=== PATIENT | female | born 1960 | race Caucasian/White ===

== ENCOUNTER 2023-07-06 12:00 | Day surgery (SDC) | payer OTHER, SELFPAY ==
--- NOTE | 2023-07-06 12:10 | FL_ITS ---
The [address] [address] Patient Name: GRADY DIXON MRN: [id number] date: 1960 Sex: F Assigned Patient Location: SD Current Patient Location: Accession/Order Number: [id number] Exam Date: 07/06/2023 13:10 Report Date: 07/06/2023 14:12 At the request of: ZAHIDA LOPEZ Procedure: FL hip inj LT EXAMINATION: FL hip inj LT, FL guided needle placement HISTORY: Arthritis of left hip M16.12 COMPARISON: No relevant comparison available. TECHNIQUE: An arthrogram was performed under fluoroscopic guidance using non-ionic contrast material in the usual sterile manner after obtaining informed consent. Standard level fluoroscopic mode of operation utilized. FINDINGS: JOINT: Left hip NEEDLE: 25 gauge, 3.5 spinal needle. MEDICATION: 2 mL buffered 1% lidocaine for subcutaneous anesthesia. 2 mL Omnipaque-300 iodinated contrast to visualize the joint space. 40 mg Kenalog, 2 mL 0.5% bupivacaine, and 3 mL Omnipaque 300 injected into the joint space. TECHNIQUE: Anterior approach with prior localization of the femoral artery. A single stick was successful in gaining access to the joint space. CLINICAL: Improvement of joint pain post injection (10/10 preinjection; 5/10 post injection). COMPLICATIONS: None. OTHER: Negative. FL/FL hip inj LT IMPRESSION: 1. Technically successful left hip injection. Electronically authenticated by: STEPHEN REILLY Date: 07/06/2023 14:12
--- NOTE | 2023-07-06 12:11 | FL_ITS ---
The [address] [address] Patient Name: GRADY DIXON MRN: [id number] date: 1960 Sex: F Assigned Patient Location: CT Current Patient Location: Accession/Order Number: [id number] Exam Date: 07/06/2023 13:10 Report Date: 07/06/2023 14:12 At the request of: ZAHIDA LOPEZ Procedure: FL guided needle placement EXAMINATION: FL hip inj LT, FL guided needle placement HISTORY: Arthritis of left hip M16.12 COMPARISON: No relevant comparison available. TECHNIQUE: An arthrogram was performed under fluoroscopic guidance using non-ionic contrast material in the usual sterile manner after obtaining informed consent. Standard level fluoroscopic mode of operation utilized. FINDINGS: JOINT: Left hip NEEDLE: 25 gauge, 3.5 spinal needle. MEDICATION: 2 mL buffered 1% lidocaine for subcutaneous anesthesia. 2 mL Omnipaque-300 iodinated contrast to visualize the joint space. 40 mg Kenalog, 2 mL 0.5% bupivacaine, and 3 mL Omnipaque 300 injected into the joint space. TECHNIQUE: Anterior approach with prior localization of the femoral artery. A single stick was successful in gaining access to the joint space. CLINICAL: Improvement of joint pain post injection (10/10 preinjection; 5/10 post injection). COMPLICATIONS: None. OTHER: Negative. FL/FL guided needle placement IMPRESSION: 1. Technically successful left hip injection. Electronically authenticated by: TSEPHEN REILLY Date: 07/06/2023 14:12
[2023-07-06] MEDS: TRIAMCINOLONE ACETONIDE 40 MG/ML VIAL INJ (13:10)
[2023-07-06] MEDS: LIDOCAINE HCL 10 ML, SODIUM BICARBONATE 1 MEQ INJ (13:10)
[2023-07-06] MEDS: BUPIVACAINE HCL 0.5% PF 50 MG/10 ML VIAL 2 ML INJ (13:10)
--- NOTE | 2023-07-06 13:58 | SUR.PREOP ---
07/01/23 Pt instructed to hold ASA until after the procedure. Pt made aware of procedure, date, time, and prep.
== END 2023-07-06 13:30 | disposition home or self-care (01) ==
LOC: FL 12:03
PROVIDERS: Radiology Diagnostic Radiology; Visit Provider Nurse Practitioner Family
DX: M16.12 Unilateral primary osteoarthritis, left hip (principal); M25.552 Pain in left hip
CPT/HCPCS: 20610; 77002; Q9967